=== PATIENT | female | born 1985 | race Caucasian/White ===

== ENCOUNTER 2023-06-06 05:41 | Day surgery (SDC) | payer OTHER ==
[2023-06-06 06:18] LABS: HCG URINE TEST NEGATIVE (NEGATIVE)
[2023-06-06 06:25] VITALS: RESP 16; TEMP 97.8
[2023-06-06] MEDS ORDERED: Lactated Ringers 1,000 ML IV SCH (06:30)
[2023-06-06] MEDS ORDERED: Xylocaine-Mpf 2% 5 Ml Vial ONE (07:53)
[2023-06-06] MEDS ORDERED: DIPRIVAN 200 MG/20 ML IV ONE (07:54)
[2023-06-06] MEDS ORDERED: Versed 2 MG/2 ML Injection ONE (07:57)
--- NOTE | 2023-06-06 08:31 | OP ---
SURGERY DATE/TIME: 06/06/2023 0757 PREOPERATIVE DIAGNOSIS: Gastroesophageal reflux disorder. POSTOPERATIVE DIAGNOSIS: Moderate gastritis. PROCEDURE: Esophagogastroduodenoscopy with cold forceps biopsy of the gastric antrum. SURGEON: Dr. Soriano. ANESTHESIA: Medications were given by the anesthesia department. BRIEF HISTORY: The patient is a 37-year-old white female presenting now for endoscopic evaluation. The patient reports that she has been on three different stomach medications without relief of her abdominal discomfort. 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 The patient was appraised of the risks of the procedure including the risk of perforation, phlebitis, untoward reaction to medication, bleeding and missed lesions. The patient verbalized her understanding and desired to have the procedure performed. DESCRIPTION OF PROCEDURE: The patient was given the medications by the anesthesia department. She had continuous pulse oximetry, ECG monitoring and intermittent blood pressure monitoring during the examination. She was placed in the left lateral decubitus position. A bite block was placed. A flexible Olympus gastroscope was then used to intubate the oropharynx. A view of the larynx was obtained and was normal. The scope was easily introduced in the esophagus which appeared to be essentially normal throughout its length. The stomach was entered where normal gastric rugal folds were seen and these distended nicely with insufflation of air. The scope was passed along the greater curvature of the stomach to the antrum. The pylorus was encountered and intubated. The duodenum was inspected and found to be normal. The scope is withdrawn towards the stomach. Again retroflex view was obtained of the lesser curvature, fundus and cardia regions of the stomach and these appeared to be essentially normal. The scope was then redirected towards the gastric antrum where there was appearance of some mild to moderate gastritis and biopsies were obtained to rule out the presence of Helicobacter pylori-type organisms. The scope was then removed from the patient who tolerated the procedure well and was sent back to outpatient recovery in good condition.
[2023-06-06 08:49] VITALS: BP 110/57; PULSE 61; O2SAT 96
== END 2023-06-06 08:57 | disposition home or self-care (01) ==
LOC: SDC 05:41
PROVIDERS: ATTEND Family Medicine
DX: K29.70 Gastritis, unspecified, without bleeding (principal); K21.9 Gastro-esophageal reflux disease without esophagitis
CPT/HCPCS: 81025; J2250; J2704